=== PATIENT | male | born 1960 | race Caucasian/White ===

== ENCOUNTER 2017-08-06 14:41 | Emergency (ER) | payer BC ==
[~2017-08-06] VITALS: Ht 180.3 cm; Wt 150.0 kg
[~2017-08-06 14:41] MED LIST: CARAFATE1 GM PO; CIPROFLOXACN500 MG PO; FERROUS FUM324 MG PO; ICAR-C PO; LEVOTHYROXIN25 MC1 PO; NEXIUM40 M1 PO; PERI-COLACE1 TAB PO; TRIAM/NYSTAT EX; VITAMIN B-122500 MCG
[2017-08-06] MEDS ORDERED: PROTONIX40 M4 (15:35)
[2017-08-06 15:51] LABS: IMMATURE GRANULOCYTES 0.3 % (0.0-1.0); MEAN CORPUSCULAR HGB 29.5 pG CALC (26.0-32.0); MEAN CORPUSCULAR HGB CONC 33.7 g/L CALC (32.0-36.0); NEUT# 5.19 thou/uL (1.82-7.42); RED BLOOD COUNT 4.98 mill/uL (4.70-6.10)
[2017-08-06 16:01] LABS: HEMATOCRIT 43.6 % (39.0-50.0); HEMOGLOBIN 14.7 g/dl (14.0-18.0); MEAN CELL VOLUME 87.6 fL CALC (80.0-100.0)
[2017-08-06 16:05] LABS: ALKALINE PHOSPHATASE 78 u/l (38-126); BILIRUBIN, TOTAL 0.7 mg/dL (0.0-1.4); BUN 12 mg/dL (9-20); BUN/CREATININE RATIO 15 (12-20 (CALC)); CARBON DIOXIDE 24 mmol/l (22-30); CHLORIDE 106 mmol/l (95-108); CREATININE 0.8 mg/dL (0.7-1.3); GFR > 60 ML/MIN (>=60 (CALC)); GFR FOR AFR.AMER. > 60 ML/MIN (>=60 (CALC)); LIPASE 14 u/l (23-300); POTASSIUM 4.1 mmol/l (3.5-5.1); SGPT/ALT 43 u/l (21-72)
[2017-08-06 16:10] LABS: ANION GAP 16 (6-22 (CALC)); SGOT/AST 50 u/l (17-59); SODIUM 142 mmol/l (137-146); TOTAL PROTEIN 7.6 g/dL (6.3-8.2)
[2017-08-06 16:45] VITALS: BP 150/71
== END 2017-08-06 16:55 | disposition home or self-care (01) | DRG 313 ==
LOC: ED 14:41
PROVIDERS: Emergency Medicine
DX: R07.9 Chest pain, unspecified (principal); R00.0 Tachycardia, unspecified; Z98.84 Bariatric surgery status

== ENCOUNTER 2018-07-04 09:02 | Day surgery (SDC) | payer BC ==
[~2018-07-04 09:02] MED LIST changes: +METFORMIN500 MG PO; +PROTONIX40 M4; +WELLBUTRIN SR150 MG PO
[2018-07-04] MEDS ORDERED: ICAR-C (09:17)
[2018-07-04 11:05] VITALS: BP 104/69
== END 2018-07-04 11:16 | disposition home or self-care (01) | DRG 395 ==
LOC: ENDO 09:02 → ORM 11:45
PROVIDERS: ATTEND Internal Medicine Gastroenterology
PROC: 0DBN8ZX Excision of Sigmoid Colon, Via Natural or Artificial Opening Endoscopic, Diagnostic (ICD-10-PCS; principal; 2018-07-04)
PROC: 0DBL8ZX Excision of Transverse Colon, Via Natural or Artificial Opening Endoscopic, Diagnostic (ICD-10-PCS; 2018-07-04)
PROC: 0DB48ZX Excision of Esophagogastric Junction, Via Natural or Artificial Opening Endoscopic, Diagnostic (ICD-10-PCS; 2018-07-04)
DX: D12.5 Benign neoplasm of sigmoid colon (principal); D12.3 Benign neoplasm of transverse colon; K64.4 Residual hemorrhoidal skin tags; K64.8 Other hemorrhoids; K29.50 Unspecified chronic gastritis without bleeding; K21.9 Gastro-esophageal reflux disease without esophagitis; Z80.0 Family history of malignant neoplasm of digestive organs; Z86.010 Personal history of colon polyps; Z79.899 Other long term (current) drug therapy; Z98.84 Bariatric surgery status

== ENCOUNTER 2018-07-16 03:59 | Inpatient (IN) | payer BC ==
[2018-07-16] VITALS (9 sets, daily range): BP systolic 116–165; BP diastolic 65–90
[~2018-07-16] VITALS: Ht 180.3 cm; Wt 126.6 kg
[~2018-07-16 03:59] MED LIST changes: +ICAR-C
[2018-07-16 04:38] LABS: HEMATOCRIT 45.5 % (39.0-50.0); HEMOGLOBIN 15.2 g/dl (14.0-18.0); IMMATURE GRANULOCYTES 0.3 % (0.0-5.0); MEAN CELL VOLUME 90.8 fL CALC (80.0-100.0); MEAN CORPUSCULAR HGB 30.3 pG CALC (26.0-32.0); MEAN CORPUSCULAR HGB CONC 33.4 g/L CALC (32.0-36.0); NEUT# 5.56 thou/uL (1.82-7.42); RED BLOOD COUNT 5.01 mill/uL (4.70-6.10); RED CELL DISTRI WIDTH 13.2 % (11.5-15.5)
[2018-07-16 04:52] LABS: ALBUMIN 4.1 g/dL (3.2-5.0); ALKALINE PHOSPHATASE 83 u/l (38-126); AMYLASE 40 u/l (30-110); ANION GAP 14 (6-22 (CALC)); BILIRUBIN, TOTAL 0.7 mg/dL (0.0-1.4); BUN 12 mg/dL (9-20); BUN/CREATININE RATIO 21 (12-20 (CALC)); CARBON DIOXIDE 29 mmol/l (22-30); CHLORIDE 103 mmol/l (95-108); CREATININE 0.6 mg/dL (0.7-1.3); GFR > 60 ML/MIN (>=60 (CALC)); GFR FOR AFR.AMER. > 60 ML/MIN (>=60 (CALC)); LIPASE 18 u/l (23-300); POTASSIUM 4.5 mmol/l (3.5-5.1); SGOT/AST 26 u/l (17-59); SODIUM 142 mmol/l (137-146); TOTAL PROTEIN 7.6 g/dL (6.3-8.2)
[2018-07-16 04:53] LABS: URINE BILIRUBIN - DIPSTICK NEGATIVE (NEGATIVE); URINE BLOOD DIPSTICK MODERATE (NEGATIVE); URINE COLOR YELLOW; URINE GLUCOSE - DIPSTICK NEGATIVE (NEGATIVE); URINE KETONE NEGATIVE (NEGATIVE); URINE LEUK ESTERASE NEGATIVE (NEGATIVE); URINE NITRITE - DIPSTICK NEGATIVE (Negative); URINE PROTEIN - DIPSTICK NEGATIVE (NEG-TRACE)
[2018-07-16 05:04] LABS: MYOGLOBIN 26 ng/mL (0 - 121)
[2018-07-16 05:06] LABS: URINE SQUAMOUS EPITHELIAL CELL FEW EPI/hpf (0-FEW)
[2018-07-17 03:46] VITALS: BP 129/83
[2018-07-17 05:29] LABS: IMMATURE GRANULOCYTES 0.4 % (0.0-5.0); MEAN CELL VOLUME 91.4 fL CALC (80.0-100.0); MEAN CORPUSCULAR HGB 30.1 pG CALC (26.0-32.0); NEUT# 6.53 thou/uL (1.82-7.42); RED BLOOD COUNT 3.85 mill/uL (4.70-6.10); RED CELL DISTRI WIDTH 13.2 % (11.5-15.5)
[2018-07-17 05:33] LABS: HEMATOCRIT 35.2 % (39.0-50.0); HEMOGLOBIN 11.6 g/dl (14.0-18.0)
[2018-07-17 05:53] LABS: BILIRUBIN, TOTAL 1.8 mg/dL (0.0-1.4); BUN 15 mg/dL (9-20); BUN/CREATININE RATIO 26 (12-20 (CALC)); CARBON DIOXIDE 27 mmol/l (22-30); CHLORIDE 99 mmol/l (95-108); CREATININE 0.6 mg/dL (0.7-1.3); GFR > 60 ML/MIN (>=60 (CALC)); GFR FOR AFR.AMER. > 60 ML/MIN (>=60 (CALC)); LIPASE 12 u/l (23-300); MAGNESIUM 1.4 mg/dL (1.6-2.3); POTASSIUM 4.6 mmol/l (3.5-5.1)
[2018-07-17 05:54] LABS: AMYLASE < 30 u/l (30-110); ANION GAP 12 (6-22 (CALC)); SODIUM 133 mmol/l (137-146)
[2018-07-17 05:55] LABS: ALKALINE PHOSPHATASE 148 u/l (38-126); SGOT/AST 318 u/l (17-59); TOTAL PROTEIN 5.4 g/dL (6.3-8.2)
[2018-07-17 07:30] VITALS: BP 123/69
[2018-07-17 11:49] VITALS: BP 116/77
[2018-07-17 12:34] LABS: HEMATOCRIT 35.1 % (39.0-50.0); HEMOGLOBIN 11.4 g/dl (14.0-18.0)
[2018-07-17 14:00] LABS: URINE BILIRUBIN - DIPSTICK NEGATIVE (NEGATIVE); URINE BLOOD DIPSTICK SMALL (NEGATIVE); URINE GLUCOSE - DIPSTICK NEGATIVE (NEGATIVE); URINE KETONE TRACE mg/dL (NEGATIVE); URINE LEUK ESTERASE NEGATIVE (Negative); URINE NITRITE - DIPSTICK NEGATIVE (Negative); URINE PROTEIN - DIPSTICK TRACE mg/dL (NEG-TRACE); URINE SPECIFIC GRAVITY 1.015
[2018-07-17 14:01] LABS: URINE COLOR ORANGE
[2018-07-17 14:02] LABS: URINE CLARITY SL CLOUDY
[2018-07-17 14:29] VITALS: BP 132/78
[2018-07-17 19:15] VITALS: BP 144/84
[2018-07-18 00:28] VITALS: BP 128/77
[2018-07-18 04:16] VITALS: BP 114/72
[2018-07-18 05:34] LABS: HEMATOCRIT 32.8 % (39.0-50.0); HEMOGLOBIN 10.6 g/dl (14.0-18.0); IMMATURE GRANULOCYTES 0.4 % (0.0-5.0); MEAN CELL VOLUME 93.7 fL CALC (80.0-100.0); MEAN CORPUSCULAR HGB 30.3 pG CALC (26.0-32.0); MEAN CORPUSCULAR HGB CONC 32.3 g/L CALC (32.0-36.0); NEUT# 7.79 thou/uL (1.82-7.42); RED BLOOD COUNT 3.5 mill/uL (4.70-6.10); RED CELL DISTRI WIDTH 13.1 % (11.5-15.5)
[2018-07-18 05:54] LABS: ALBUMIN 2.8 g/dL (3.2-5.0); ALKALINE PHOSPHATASE 130 u/l (38-126); ANION GAP 13 (6-22 (CALC)); BUN 11 mg/dL (9-20); BUN/CREATININE RATIO 18 (12-20 (CALC)); CARBON DIOXIDE 27 mmol/l (22-30); CHLORIDE 99 mmol/l (95-108); CREATININE 0.6 mg/dL (0.7-1.3); GFR > 60 ML/MIN (>=60 (CALC)); GFR FOR AFR.AMER. > 60 ML/MIN (>=60 (CALC)); POTASSIUM 4.5 mmol/l (3.5-5.1); SGOT/AST 81 u/l (17-59); SODIUM 134 mmol/l (137-146); TOTAL PROTEIN 5.3 g/dL (6.3-8.2)
[2018-07-18 07:54] VITALS: BP 109/67
[2018-07-18 16:48] VITALS: BP 123/78
[2018-07-18 19:20] VITALS: BP 137/87
[2018-07-19 00:30] VITALS: BP 119/74
[2018-07-19 04:40] VITALS: BP 119/75
[2018-07-19 05:01] LABS: HEMATOCRIT 33.8 % (39.0-50.0); IMMATURE GRANULOCYTES 0.5 % (0.0-5.0); MEAN CELL VOLUME 92.6 fL CALC (80.0-100.0); MEAN CORPUSCULAR HGB 30.1 pG CALC (26.0-32.0); MEAN CORPUSCULAR HGB CONC 32.5 g/L CALC (32.0-36.0); NEUT# 6.36 thou/uL (1.82-7.42); RED BLOOD COUNT 3.65 mill/uL (4.70-6.10); RED CELL DISTRI WIDTH 12.7 % (11.5-15.5)
[2018-07-19 06:04] LABS: ALKALINE PHOSPHATASE 157 u/l (38-126); ANION GAP 13 (6-22 (CALC)); BILIRUBIN, TOTAL 1.7 mg/dL (0.0-1.4); BUN 7 mg/dL (9-20); BUN/CREATININE RATIO 13 (12-20 (CALC)); CARBON DIOXIDE 28 mmol/l (22-30); CHLORIDE 101 mmol/l (95-108); CREATININE 0.6 mg/dL (0.7-1.3); GFR > 60 ML/MIN (>=60 (CALC)); GFR FOR AFR.AMER. > 60 ML/MIN (>=60 (CALC)); MAGNESIUM 1.7 mg/dL (1.6-2.3); POTASSIUM 3.9 mmol/l (3.5-5.1); SGOT/AST 45 u/l (17-59); SODIUM 138 mmol/l (137-146); TOTAL PROTEIN 5.6 g/dL (6.3-8.2)
[2018-07-19 07:51] VITALS: BP 127/80
[2018-07-19 10:41] LABS: CHOLESTEROL HDL RATIO 4.8 (<4.4 (CALC))
[2018-07-19 16:26] VITALS: BP 109/64
[2018-07-19 20:35] VITALS: BP 112/71
[2018-07-20 04:25] VITALS: BP 120/76
[2018-07-20 05:24] LABS: HEMATOCRIT 32.8 % (39.0-50.0); HEMOGLOBIN 10.5 g/dl (14.0-18.0); IMMATURE GRANULOCYTES 0.4 % (0.0-5.0); MEAN CELL VOLUME 93.4 fL CALC (80.0-100.0); MEAN CORPUSCULAR HGB 29.9 pG CALC (26.0-32.0); NEUT# 5.63 thou/uL (1.82-7.42); RED BLOOD COUNT 3.51 mill/uL (4.70-6.10)
[2018-07-20 05:39] LABS: ALBUMIN 3.1 g/dL (3.2-5.0); ANION GAP 14 (6-22 (CALC)); BILIRUBIN, TOTAL 1.3 mg/dL (0.0-1.4); BUN 7 mg/dL (9-20); BUN/CREATININE RATIO 12 (12-20 (CALC)); CARBON DIOXIDE 29 mmol/l (22-30); CHLORIDE 99 mmol/l (95-108); CREATININE 0.6 mg/dL (0.7-1.3); GFR > 60 ML/MIN (>=60 (CALC)); GFR FOR AFR.AMER. > 60 ML/MIN (>=60 (CALC)); MAGNESIUM 1.8 mg/dL (1.6-2.3); POTASSIUM 4.2 mmol/l (3.5-5.1); SGOT/AST 38 u/l (17-59); SODIUM 138 mmol/l (137-146); TOTAL PROTEIN 5.9 g/dL (6.3-8.2)
[2018-07-20 06:00] LABS: ALKALINE PHOSPHATASE 259 u/l (38-126)
[2018-07-20 08:14] VITALS: BP 134/67
[2018-07-20 16:00] VITALS: BP 115/73
[2018-07-20 19:00] VITALS: BP 115/61
[2018-07-21 04:46] VITALS: BP 120/61
[2018-07-21 05:30] LABS: HEMATOCRIT 29.5 % (39.0-50.0); HEMOGLOBIN 9.6 g/dl (14.0-18.0); IMMATURE GRANULOCYTES 0.7 % (0.0-5.0); MEAN CELL VOLUME 91.6 fL CALC (80.0-100.0); MEAN CORPUSCULAR HGB 29.8 pG CALC (26.0-32.0); MEAN CORPUSCULAR HGB CONC 32.5 g/L CALC (32.0-36.0); NEUT# 7.22 thou/uL (1.82-7.42); RED BLOOD COUNT 3.22 mill/uL (4.70-6.10); RED CELL DISTRI WIDTH 12.9 % (11.5-15.5)
[2018-07-21 06:03] LABS: ALBUMIN 2.6 g/dL (3.2-5.0); ALKALINE PHOSPHATASE 280 u/l (38-126); ANION GAP 12 (6-22 (CALC)); BILIRUBIN, TOTAL 1.2 mg/dL (0.0-1.4); BUN 9 mg/dL (9-20); BUN/CREATININE RATIO 14 (12-20 (CALC)); CARBON DIOXIDE 28 mmol/l (22-30); CHLORIDE 102 mmol/l (95-108); CREATININE 0.6 mg/dL (0.7-1.3); GFR > 60 ML/MIN (>=60 (CALC)); GFR FOR AFR.AMER. > 60 ML/MIN (>=60 (CALC)); MAGNESIUM 1.8 mg/dL (1.6-2.3); POTASSIUM 4.4 mmol/l (3.5-5.1); SGOT/AST 45 u/l (17-59); SODIUM 137 mmol/l (137-146); TOTAL PROTEIN 5.2 g/dL (6.3-8.2)
[2018-07-21 09:04] VITALS: BP 112/70
[2018-07-21] MEDS ORDERED: OXYCODONE/ACETA1 TA8 PO (09:22)
[2018-07-21] MEDS ORDERED: FLEXERIL5 M1 PO (09:24)
== END 2018-07-21 13:50 | disposition home or self-care (01) | DRG 418 ==
LOC: ED 03:59 → ED-I 08:14 → ED 08:33 → MS2 08:34
PROVIDERS: Emergency Medicine; Nurse Practitioner Family; Surgery; ADMIT Internal Medicine Nephrology; ATTEND Internal Medicine Nephrology
PROC: 0FT44ZZ Resection of Gallbladder, Percutaneous Endoscopic Approach (ICD-10-PCS; principal; 2018-07-16)
PROC: 0W3F0ZZ Control Bleeding in Abdominal Wall, Open Approach (ICD-10-PCS; 2018-07-16)
DX: K80.00 Calculus of gallbladder with acute cholecystitis without obstruction (principal); M96.811 Intraoperative hemorrhage and hematoma of a musculoskeletal structure complicating other procedure; D62 Acute posthemorrhagic anemia; E11.9 Type 2 diabetes mellitus without complications; N20.0 Calculus of kidney; R50.82 Postprocedural fever; E66.9 Obesity, unspecified; R74.0 Nonspecific elevation of levels of transaminase and lactic acid dehydrogenase [LDH]; Y83.6 Removal of other organ (partial) (total) as the cause of abnormal reaction of the patient, or of later complication, without mention of misadventure at the time of the procedure; Z68.38 Body mass index [BMI] 38.0-38.9, adult; Z98.84 Bariatric surgery status; Z87.11 Personal history of peptic ulcer disease
CPT/HCPCS: J0131; J2710; S0164

== ENCOUNTER 2019-08-21 | Emergency (ER) | payer BC ==
[~2019-08-21] MED LIST changes: +FLEXERIL5 M1 PO; +OXYCODONE/ACETA1 TA8 PO
[2019-08-21] MEDS ORDERED: VYVANSE50 MG PO (18:46)
[2019-08-21] MEDS ORDERED: VOLTAREN - GENE75 MG PO (19:28)
[2019-08-21] MEDS ORDERED: TRAMADOL HCL50 MG PO (19:28)
== END 2019-08-21 19:53 | disposition home or self-care (01) | DRG 605 ==
DX: S61.213A Laceration without foreign body of left middle finger without damage to nail, initial encounter (principal); S61.215A Laceration without foreign body of left ring finger without damage to nail, initial encounter; W23.0XXA Caught, crushed, jammed, or pinched between moving objects, initial encounter; Y92.008 Other place in unspecified non-institutional (private) residence as the place of occurrence of the external cause

== ENCOUNTER 2021-06-19 09:49 | Emergency (ER) | payer BC ==
[~2021-06-19] VITALS: Ht 180.3 cm; Wt 150.0 kg
[~2021-06-19 09:49] MED LIST changes: +TRAMADOL HCL50 MG PO; +VOLTAREN - GENE75 MG PO; +VYVANSE50 MG PO
[2021-06-19 10:03] VITALS: BP 135/86
[2021-06-19] MEDS ORDERED: ACETAMINOP160 MG/5 M PO (10:12)
[2021-06-19] MEDS ORDERED: NEXIUM40 M1 PO (10:12)
[2021-06-19 10:19] LABS: HEMATOCRIT 39.4 % (39.0-50.0); HEMOGLOBIN 12.1 g/dl (14.0-18.0); IMMATURE GRANULOCYTES 0.1 % (0.0-5.0); MEAN CORPUSCULAR HGB 24.2 pG CALC (26.0-32.0); MEAN CORPUSCULAR HGB CONC 30.7 g/dL CAL (32.0-36.0); NEUT# 4.65 thou/uL (1.82-7.42); RED CELL DISTRI WIDTH 17.9 % (11.5-15.5)
[2021-06-19 10:22] LABS: MEAN CELL VOLUME 78.8 fL CALC (80.0-100.0)
[2021-06-19 10:30] VITALS: BP 143/80
[2021-06-19 10:47] LABS: INTERNATIONAL NORMALIZED RATIO 0.9 RATIO (0.7-1.3); PROTHROMBIN TIME 9.4 SECONDS (9.0-12.5)
[2021-06-19 10:50] LABS: ALBUMIN 4.1 g/dL (3.2-5.0); ALKALINE PHOSPHATASE 83 u/l (38-126); ANION GAP 12 (6-22 (CALC)); BILIRUBIN, TOTAL 0.4 mg/dL (0.0-1.4); BUN 16 mg/dL (9-20); BUN/CREATININE RATIO 23 (12-20 (CALC)); CARBON DIOXIDE 31 mmol/l (22-30); CHLORIDE 100 mmol/l (95-108); CREATININE 0.7 mg/dL (0.7-1.3); GFR > 60 ML/MIN (>=60 (CALC)); GFR FOR AFR.AMER. > 60 ML/MIN (>=60 (CALC)); POTASSIUM 4.3 mmol/l (3.5-5.1); SGOT/AST 30 u/l (17-59); SODIUM 139 mmol/l (137-146); TOTAL PROTEIN 7.1 g/dL (6.3-8.2)
[2021-06-19 11:01] VITALS: BP 135/80
[2021-06-19 11:32] VITALS: BP 135/80
[2021-06-21] MEDS ORDERED: MULTIVITAMI9 PO (11:28)
== END 2021-06-19 11:47 | disposition home or self-care (01) | DRG 379 ==
LOC: ED 09:49
PROVIDERS: Family Medicine
DX: K92.1 Melena (principal); E66.9 Obesity, unspecified; Z98.84 Bariatric surgery status